=== PATIENT | female | born 1960 | race Two or more races ===

== ENCOUNTER 2020-03-28 05:55 | Day surgery (SDC) | payer OTHER ==
[~2020-03-28 05:55] MED LIST: LOSARTAN-HCTZ1 EACH PO
== END 2020-03-28 15:30 | disposition home or self-care (01) ==
LOC: CIR.AMB 05:55
PROVIDERS: ATTEND Orthopaedic Surgery Hand Surgery
DX: M72.0 Palmar fascial fibromatosis [Dupuytren] (principal); Z20.822 Contact with and (suspected) exposure to COVID-19